=== PATIENT | female | born 1980 | race Caucasian/White ===

== ENCOUNTER 2022-11-15 23:26 | Emergency (ER) | payer BC, OTHER, SELFPAY ==
[2022-11-15 23:37] VITALS: BP 131/73; PULSE 98; RESP 17; TEMP 36.8; O2SAT 97; BMI 25.8
--- NOTE | 2022-11-15 23:45 | W.ED.EXTPRO ---
HPI - Extremity Problem General: Chief complaint: Extremity Problem,Nontraumatic Stated complaint: pain in left back hip down to leg Time Seen by Provider: 11/15/22 23:45 History of Present Illness: 42-year-old female comes in today for complaints of low back pain radiating to left hip and down to her calf. Patient ambulates without difficulty. Patient reports difficulty getting comfortable when lying flat. Standing seems to be the most comfortable part for her. Patient denies any falls or injury. Patient reports no recent changes in activity. Patient does have occasional back pain but nothing such as this before. Patient reports no fever or loss of bowel or bladder control. Associated symptoms: Deny fever(s) Review of Systems General: Reports: 10 or more systems reviewed and unremarkable except in HPI and below Const: Denies: fever(s) Musc: Reports: back pain Physical Exam Const: COMMON NORMALS: alert HENMT: COMMON NORMALS: normocephalic HEAD & SCALP: normocephalic Neck/C-Spine: COMMON NORMALS: full ROM Resp: COMMON NORMALS: normal respiratory effort Cardio: COMMON NORMALS: regular rate RATE: regular rate Back/Pelvis: THORACIC SPINE/UPPER BACK: No thoracic spinal tenderness LUMBAR SPINE/LOWER BACK: No lumbar spinal tenderness and Yes paraspinal muscle tenderness SACROILIAC JOINTS: Yes SI joint(s) abnormal SI joint details: tender to palpation (Left side) Extremity: NARRATIVE EXTREMITY EXAM: Positive leg lift test at 60 degrees left side Neuro: SENSORIUM/ORIENTATION: Yes alert Skin: COMMON NORMALS: turgor normal GENERAL SKIN EXAM: turgor normal Course Vital Signs: Vital signs: Vital Signs Temperature 98.2 F 11/15/22 23:37 Pulse Rate 98 11/15/22 23:37 Respiratory Rate 17 11/15/22 23:37 Blood Pressure 131/73 11/15/22 23:37 Pulse Oximetry 97 11/15/22 23:37 Oxygen Delivery Me thod Room Air 11/15/22 23:37 MDM - Extremity (Nontraumatic) Medical Decision Making 42-year-old female comes in today with complaints of pain radiating into her left hip and down her posterior upper leg. Patient reports the pain stops just below her left knee. No redness or swelling is noted to the extremity. Patient does have some tenderness of the sacroiliac joint. Patient also has positive leg lift test on the left side at 60 degrees. Differential diagnosis includes intervertebral disc disease, facet arthropathy, lumbar strain, sacroiliitis, cauda equina syndrome, lumbar radiculopathy. No signs of severe illness or injury is noted. No signs of cauda equina syndrome is noted. Patient appears to have sciatica. We will treat with 10 mg of dexamethasone IM and 30 mg of ketorolac IM. Patient was given hydrocodone and ibuprofen for home use. Patient reported understanding of care plan and need for follow-up or return to the ER for worsening symptoms. No radiology studies performed this visit Discharge Plan Discharge Patient Disposition: Home Clinical Impression: Sciatic pain Qualifiers: Laterality: left Qualified Code(s): M54.32 - Sciatica, left side Condition: Stable Prescriptions: New ibuprofen 800 mg tablet 800 mg PO Q6H PRN (Reason: pain) Qty: 40 0RF hydrocodone-acetaminophen 5-325 mg tablet 1 tab PO Q8H PRN (Reason: pain (scale score 7-10)) Qty: 7 0RF Discharge Orders: Discharge ED (Routine); Ordered 11/15/22 Ordered By: Herrera Sharp Referrals: Blake Flores MD [Primary Care Provider] - Discharge Diet: Usual diet Discharge Activity: Increase activity as tolerated Patient Instructions: Sciatica (ED) Activity Restrictions/Additional Instructions: Home and rest. Activity as tolerated. Use acetaminophen and ibuprofen to control pain. Use hydrocodone for severe pain. Use ice or heat for further pain. Use muscle rub with menthol to help with pain relief also. Drink plenty of water. Gentle stretching and range of motion exercises. No heavy lifting or straining. Follow-up with primary care in 3 to 5 days for recheck. Return to ER for worsening symptoms such as high fever greater than 100.4, loss of bowel or bladder control, or uncontrolled pain. Coding Level of Care Code ED Special Education Coordinator for Lynda Regan
[2022-11-16] MEDS: dexamethasone 10 mg/mL INJ IM (00:02)
[2022-11-16] MEDS: ketorolac 30 mg/mL INJ IM (00:02)
[2022-11-16] MEDS: HYDROcodone-acetaminophen 10-325 mg Tablet 1 TAB PO (00:03)
[2022-11-16 00:25] VITALS: BP 129/78; PULSE 70; RESP 16; O2SAT 100
== END 2022-11-16 00:28 | disposition home or self-care (01) ==
PROVIDERS: Emergency Provider Nurse Practitioner Family; PCP Family Medicine
DX: M54.32 Sciatica, left side (principal)
CPT/HCPCS: 96372; 99284; J1100; J1885